=== PATIENT | female | born 2005 | race Caucasian/White ===

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

== ENCOUNTER 2025-06-22 09:10 | Emergency (ER) | payer MEDICAID ==
[~2025-06-22] VITALS: Ht 170.2 cm; Wt 54.0 kg
[2025-06-22 09:12] VITALS: TEMP 99
--- NOTE | 2025-06-22 09:19 | Physician Documentation ---
History of Present Illness Chief Complaint: Vomiting Stated Complaint: RIB PAIN FROM VOMITING Primary Medical Doctor: [facility] HPI Is a very pleasant 19-year-old female that presents to the emergency department for cough congestion vomiting x2 days. Patient reports that she has felt short of breath and has had episodes of coughing so much that it causes her to vomit. Patient reports he has been unable to keep much down over the course of the last 2 days. Patient reports she has been taking Tylenol ibuprofen as she felt she has had fevers. Today in triage patient has a temp of 99. Patient reports trying to drink a smoothie prior to presenting to the emergency department without success she vomited again. Patient denies history of asthma or any other pulmonary disorders this time. Patient denies chest pain lightheadedness syncopal episodes bowel or bladder concerns or any other symptoms at this time. Medication Reconciliation Allergies: Coded Allergies: No Known Allergies (Unverified , 06/22/25) Scheduled Amoxicillin Trihydrate (Amoxicillin), 2 CAP PO BID Doxycycline Monohydrate (Doxycycline Monohydrate), 100 MG PO BID Scheduled PRN Albuterol Sulfate (Ventolin Hfa), 2 PUFFS INH Q4HPRN PRN for wheezing ONDANSETRON ODT 4mg tablet (Ondansetron Odt), 1 TABLET PO Q6H PRN for nausea/vomiting Past Medical History Past Medical History: No Pertinent History Past Surgical History: no surgical history Alcohol Use: None Drug Use: none Lives with: Mother Lives In: Home Occupation: child Review of Systems ROS As stated above in the HPI, otherwise all systems are reviewed and negative. Physical Exam Vital Signs: Temperature: 99.0, Source: Oral, Heart Rate: 134, Respiratory Rate: 19, BP: 118/84, Pulse Oximetry: 92, Weight: 54.000 Physical Exam VITALS: Reviewed and as above. GENERAL: Alert, no apparent distress. HEENT: Normocephalic, atraumatic, PERRL, EOMI, dry mucosa, no erythema, congestion noted during examination. RESPIRATORY: Lungs clear, normal breath sounds, no respiratory distress. CHEST: No accessory muscle use, no retractions, inspiratory and expiratory wheezes heard during auscultation, crackles heard bilaterally during auscultation. CV: Regular rate, rhythm, no edema, no murmur, No: JVD GI: Soft, non-tender, bowels sounds present, no rebound, guarding, or rigidity BACK: No CVA tenderness, or swelling MUSCULOSKELETAL No deformities, no edema SKIN: Warm and dry, no rash NEURO: Oriented x4, No motor or sensory deficit PSYCH: Normal mood and affect, no agitation Progress Results/Orders Results/Orders Vital Signs 06/22/25 09:12 Temp 99.0 Pulse 134 Resp 19 B/P (MAP) 118/84 Pulse Ox 92 Medical Decision Making Additional information obtaine: old records Findings The patient presented with cough shortness of breath and nausea and vomiting. Patient had a benign abdominal exam. The patient was treated with breathing treatments and IV fluids as she was tachycardic and had a white blood cell count elevation. Was found to have a left lower lobe pneumonia. I reviewed the X-ray i'm not going to ask you but I interpreted it as showing pneumonia. The patient had a normal mediastinum normal appearing cardiac silhouette and left lower lobe infiltrates. The patient's compliance monitor was interpreted as sinus tachycardia. Pulse oximetry was interpreted as abnormal and low. The patient was given IV antibiotics, and her breathing improved and she remained hemodynamically stable. She had no hypoxia or increased work of breathing at the time of discharge Differential Dx:Considerations: Cholelithasis, Diverticular disease, Esophagitis, Gastritis/PUD, Gastroenteritis, GI hemorrhage, Pancreatitis Departure Disposition: 01 HOME / SELF CARE / HOMELESS Impression: Primary Impression: Vomiting Qualified Codes: R11.2 - Nausea with vomiting, unspecified Additional Impression: Pneumonia Qualified Codes: J18.9 - Pneumonia, unspecified organism Referrals: NO PRIMARY CARE PROVIDER (PCP) Prescriptions Albuterol Sulfate (Ventolin Hfa) 90 Mcg Hfa.aer.ad 2 PUFFS INH Q4HPRN PRN for wheezing for 30 Days, #18 GM 0 Refills Prov: ELLIOT LLOYD MD 06/22/25 Amoxicillin Trihydrate (Amoxicillin) 500 Mg Capsule 2 CAP PO BID, #28 CAP Prov: ELLIOT LLOYD MD 06/22/25 Doxycycline Monohydrate (Doxycycline Monohydrate) 100 Mg Capsule 100 MG PO BID, #14 CAP may sub doxycycline hyclate or azithromycin z-pack as prescribed Prov: ELLIOT LLOYD MD 06/22/25 ONDANSETRON ODT 4mg tablet (ONDANSETRON ODT) 4 Mg Tab.rapdis 1 TABLET PO Q6H PRN for nausea/vomiting, #12 TABLET Prov: ELLIOT LLOYD MD 06/22/25 Signature Scribe Signature: none Attestation: The patient presented with cough shortness of breath and nausea and vomiting. Patient had a benign abdominal exam. The patient was treated with breathing treatments and IV fluids as she was tachycardic and had a white blood cell count elevation. Was found to have a left lower lobe pneumonia. I reviewed the X-ray i'm not going to ask you but I interpreted it as showing pneumonia. The patient had a normal mediastinum normal appearing cardiac silhouette and left lower lobe infiltrates. The patient's compliance monitor was interpreted as sinus tachycardia. Pulse oximetry was interpreted as abnormal and low. The patient was given IV antibiotics, and her breathing improved and she remained hemodynamically stable. She had no hypoxia or increased work of breathing at the time of discharge MARI BELLO Jun 22, 2025 09:19 ELLIOT LLOYD MD Jun 22, 2025 09:53
[2025-06-22] MEDS: normal saline 1000ML IV soln IVB ONE ×3 (09:45→11:50)
[2025-06-22 09:46] LABS: MEAN PLATELET VOLUME 7.7 FL (7.4-10.4); RED CELL DISTRIBUTION WIDTH 15.7 % (11.5-14.5)
--- NOTE | 2025-06-22 10:10 | RADIOLOGY REPORT ---
CLINICAL HISTORY: SOB. TECHNIQUE: Frontal and lateral views of the chest were obtained. COMPARISON: None available. FINDINGS: DEVICES/LINES/TUBES: None. LUNGS: Patchy opacities of the left lower lobe, which is concerning for an infectious or inflammatory process. Right lung is predominantly clear. No russ pulmonary edema. PLEURA: No pneumothorax or pleural effusion. MEDIASTINUM/OTHER: Normal heart size and mediastinal contours. Trachea is midline. BONES: Unremarkable. UPPER ABDOMEN: Unremarkable. IMPRESSION: Patchy opacities of the left lower lobe, which is concerning for an infectious or inflammatory process. Attention on interval chest imaging follow-up to resolution.
[2025-06-22] MEDS: dexamethasone sod phosphate 10mg/ml inj IV STA (10:14)
[2025-06-22] MEDS: metoclopramide 5 mg/ml inj IV ONE (10:14)
[2025-06-22] MEDS: CefTRIAXone 2gm/D5W 50ml BAG 50 ML IV ONE (10:14)
[2025-06-22 10:23] LABS: CREATININE 0.88 MG/DL (0.40-0.90); TOTAL CARBON DIOXIDE 26.2 MMOL/L (24-32); eCRCL 87 ML/MIN; eGFR 82 ML/MIN
[2025-06-22 10:26] VITALS: PULSE 105; RESP 20; O2SAT 95
[2025-06-22] MEDS: ipratropium/albuterol 3ml nebule NEB ONE (10:26)
[2025-06-22 10:31] VITALS: PULSE 107; RESP 20; O2SAT 100
[2025-06-22 12:15] LABS: INFLUENZA TYPE A ANTIGEN RAPID NEGATIVE (Negative); INFLUENZA TYPE B ANTIGEN RAPID NEGATIVE (Negative)
[2025-06-22 13:45] VITALS: O2SAT 97
[2025-06-22] MEDS ORDERED: DOXY100C43 PO (14:00)
[2025-06-22] MEDS ORDERED: AMOX-101 PO (14:00)
[2025-06-22] MEDS ORDERED: ALBU18HF2 INH (14:00)
[2025-06-22] MEDS ORDERED: ONDA-243 PO (14:00)
[2025-06-22 14:16] VITALS: BP 119/85; PULSE 88; RESP 16
== END 2025-06-22 14:32 | disposition home or self-care (01) ==
LOC: ER 09:11
DX: J18.9 Pneumonia, unspecified organism (principal); R11.10 Vomiting, unspecified
CPT/HCPCS: 36415; 71046; 80053; 84145; 85025; 87804; 87811; 94640; 94760; 96361; 96365; 96375; 99285; J0696; J1100; J1200; J2765; J7030